=== PATIENT | male | born 1970 | race Hispanic/Latino ===

== ENCOUNTER 2019-05-06 07:02 | Emergency (ER) | payer SELFPAY ==
--- NOTE | 2019-05-06 08:25 | Emergency Department Report ---
<OLLIEBENITO DIOR Camelia - Last Filed: 05/06/19 17:44> ED Alcohol HPI - General Chief Complaint: Alcohol Stated Complaint: ALCOHOL WITHDRAWAL Time Seen by Provider: 05/06/19 08:16 Source: patient, EMS Mode of arrival: Ambulatory Limitations: No Limitations - History of Present Illness Initial Comments: 49 yo male comes to ER via EMS stating that he recently stopped drinking and is now having nausea tremors and weakness. His last drink was Sunday. He has been through prior detox. He has no history of seizures with detox. He states that he has been on a binge for about the last month. Pt tremulous on admit. He is pos for SI stating he would drink himself to or hang/choke himself. No previous suicide attempts. Patient lives with a roommate. Patient denies alcohol or drugs. Past medical history Hypertension Hyperlipidemia Obesity Depression Alcohol abuse gerd Patient does not work. Mom is in [facility] and has htn Fater is in [facility] and has htn Rx BP meds- does not know name MD Complaint: alcohol withdrawal Chronic Alcohol Use: Yes Previous Visits for Alcohol Intoxication?: Yes Recent Trauma: No Associated Symptoms: tremors, suicidality Treatments Prior to Arrival: none - Related Data Home Medications Medication Instructions Recorded Confirmed Last Taken Atorvastatin (Nf) [Lipitor] 10 mg PO DAILY 07/22/14 07/22/14 Unknown Omeprazole [PriLOSEC] 40 mg PO DAILY 07/22/14 07/22/14 Unknown Sertraline [Zoloft] 100 mg PO DAILY 07/22/14 07/22/14 Unknown amLODIPine [Norvasc] 10 mg PO DAILY 07/22/14 07/22/14 Unknown Previous Rx's Medication Instructions Recorded Last Taken Type Fenofibrate [Fenoglide] 120 mg PO QDAY #90 tablet 07/23/14 Unknown Rx chlordiazePOXIDE [Librium] 25 mg PO Q6H #14 capsule 05/06/19 Unknown Rx Allergies Allergy/AdvReac Type Severity Reaction Status Date / Time No Known Allergies Allergy Unverified 09/17/13 16:13 ED Review of Systems Comment: All other systems reviewed and negative ED Past Medical Hx - Past Medical History Hx Hypertension: Yes Hx CVA: No Hx Heart Attack/AMI: No Hx Congestive Heart Failure: No Hx Diabetes: No Hx Deep Vein Thrombosis: No Hx Pulmonary Embolism: No Hx GERD: Yes Hx Liver Disease: No Hx Renal Disease: No Hx of Cancer: No Hx Sickle Cell Disease: No Hx Arthritis: No Hx Headaches / Migraines: No Hx Seizures: No Hx Kidney Stones: No Hx Psychiatric Treatment: Yes (detox tx) Hx Asthma: No Hx COPD: No Hx Tuberculosis: No Hx Dementia: No Hx HIV: No Additional medical history: HIGH CHOLESTEROL - Surgical History Past Surgical History?: No - Family History Family history: no significant - Social History Smoking Status: Never Smoker Substance Use Type: Alcohol - Medications Home Medications: Home Medications Medication Instructions Recorded Confirmed Last Taken Type Atorvastatin (Nf) [Lipitor] 10 mg PO DAILY 07/22/14 07/22/14 Unknown History Omeprazole [PriLOSEC] 40 mg PO DAILY 07/22/14 07/22/14 Unknown History Sertraline [Zoloft] 100 mg PO DAILY 07/22/14 07/22/14 Unknown History amLODIPine [Norvasc] 10 mg PO DAILY 07/22/14 07/22/14 Unknown History Fenofibrate [Fenoglide] 120 mg PO QDAY #90 tablet 07/23/14 Unknown Rx chlordiazePOXIDE [Librium] 25 mg PO Q6H #14 capsule 05/06/19 Unknown Rx ED Physical Exam - General Limitations: No Limitations General appearance: alert, in no apparent distress - Head Head exam: Present: atraumatic, normocephalic - Eye Eye exam: Present: normal appearance - ENT ENT exam: Present: mucous membranes moist - Neck Neck exam: Present: normal inspection - Respiratory Respiratory exam: Present: normal lung sounds bilaterally. Absent: respiratory distress - Cardiovascular Cardiovascular Exam: Present: regular rate, normal rhythm. Absent: systolic murmur, diastolic murmur, rubs, gallop - GI/Abdominal GI/Abdominal exam: Present: soft, normal bowel sounds - Rectal Rectal exam: Present: deferred - Extremities Exam Extremities exam: Present: normal inspection - Back Exam Back exam: Present: normal inspection - Neurological Exam Neurological exam: Present: alert, oriented X3 - Psychiatric Psychiatric exam: Present: depressed, anxious, suicidal ideation - Skin Skin exam: Present: warm, dry, intact, normal color. Absent: rash ED Medical Decision Making - Lab Data Result diagrams: 05/06/19 08:43 05/06/19 08:43 - EKG Data EKG shows normal: sinus rhythm Rate: normal - EKG Data When compared to previous EKG there are: no significant change Interpretation: nonspecific ST-T wave spencer - Radiology Data Radiology results: report reviewed, image reviewed - Medical Decision Making Labs 05/06/19 05/06/19 05/06/19 08:43 08:43 08:43 WBC 4.7 RBC 4.54 Hgb 13.0 Hct 39.3 MCV 87 MCH 29 MCHC 33 RDW 17.8 H Plt Count 261 [place] % (Auto) Supply Officer PT 13.0 INR 0.97 Sodium Potassium Chloride Carbon Dioxide Anion Gap BUN Creatinine Estimated GFR BUN/Creatinine Ratio Glucose Calcium Magnesium 1.80 Total Bilirubin AST ALT Alkaline Phosphatase NT-Pro-B Natriuret Pep Total Protein Albumin Albumin/Globulin Ratio Amylase 91 Lipase Urine Color Urine Turbidity Urine pH Ur Specific [place] Urine Protein Urine Glucose (UA) Urine Ketones Urine Blood Urine Nitrite Urine Bilirubin Urine Urobilinogen Ur Leukocyte Esterase Urine RBC (Auto) U Epithel Cells (Auto) Urine Mucus Salicylates Acetaminophen Plasma/Serum Alcohol 05/06/19 05/06/19 05/06/19 08:43 08:43 08:43 WBC RBC Hgb Hct MCV MCH MCHC RDW Plt Count [place] % (Auto) PT INR Sodium 138 Potassium 4.0 Chloride 94.7 L Carbon Dioxide 17 L Anion Gap 30 BUN 15 Creatinine 0.7 L Estimated GFR > 60 BUN/Creatinine Ratio 21 Glucose 89 Calcium 9.7 Magnesium Total Bilirubin 0.40 AST 71 H ALT 33 Alkaline Phosphatase 89 NT-Pro-B Natriuret Pep 80.88 Total Protein 8.0 Albumin 4.7 Albumin/Globulin Ratio 1.4 Amylase Lipase 24 Urine Color Urine Turbidity Urine pH Ur Specific [place] Urine Protein Urine Glucose (UA) Urine Ketones Urine Blood Urine Nitrite Urine Bilirubin Urine Urobilinogen Ur Leukocyte Esterase Urine RBC (Auto) U Epithel Cells (Auto) Urine Mucus Salicylates Acetaminophen Plasma/Serum Alcohol < 0.01 05/06/19 05/06/19 05/06/19 08:43 08:43 09:58 WBC RBC Hgb Hct MCV MCH MCHC RDW Plt Count [place] % (Auto) PT INR Sodium Potassium Chloride Carbon Dioxide Anion Gap BUN Creatinine Estimated GFR BUN/Creatinine Ratio Glucose Calcium Magnesium Total Bilirubin AST ALT Alkaline Phosphatase NT-Pro-B Natriuret Pep Total Protein Albumin Albumin/Globulin Ratio Amylase Lipase Urine Color Yellow Urine Turbidity Clear Urine pH 5.0 Ur Specific [place] 1.021 Urine Protein 30 mg/dl Urine Glucose (UA) Neg Urine Ketones 80 Urine Blood Sm Urine Nitrite Neg Urine Bilirubin Neg Urine Urobilinogen < 2.0 Ur Leukocyte Esterase Neg Urine RBC (Auto) 2.0 U Epithel Cells (Auto) < 1.0 Urine Mucus Few Salicylates < 0.3 L Acetaminophen < 5.0 L Plasma/Serum Alcohol Vital Signs 05/06/19 05/06/19 07:54 10:02 Temperature 99.5 F Pulse Rate 88 90 Respiratory 18 14 Rate Blood Pressure 159/108 Blood Pressure 159/108 180/118 [Left] O2 Sat by Pulse 98 100 Oximetry 2012 for ETOH w/d SI pos- drink to or hang/choke self labs noted sz percautions CIWA protocol clonidine PO- monitor blood pressure MHE eval - dispo per MHE 1630 DISCUSSED PT WITH MENTAL HEALTH STAFF- THEY WILL EVALUATE AND PLACE RECS. Vital Signs 05/06/19 05/06/19 05/06/19 07:51 07:54 08:00 Temperature 99.5 F Pulse Rate 93 H 88 90 Respiratory 17 18 14 Rate Blood Pressure 159/108 159/108 159/108 Blood Pressure 159/108 [Left] O2 Sat by Pulse 98 98 Oximetry 05/06/19 05/06/19 05/06/19 09:01 10:01 10:02 Temperature Pulse Rate 88 90 90 Respiratory 17 16 14 Rate Blood Pressure 171/105 180/118 Blood Pressure 180/118 [Left] O2 Sat by Pulse 98 100 Oximetry 05/06/19 05/06/19 05/06/19 10:43 10:45 11:00 Temperature Pulse Rate 79 95 H 77 Respiratory 19 19 Rate Blood Pressure 169/107 169/107 Blood Pressure 169/107 [Left] O2 Sat by Pulse 98 98 Oximetry 05/06/19 05/06/19 05/06/19 12:00 12:14 13:00 Temperature Pulse Rate 67 85 102 H Respiratory 20 16 16 Rate Blood Pressure 157/102 151/97 Blood Pressure 157/102 [Left] O2 Sat by Pulse 98 98 98 Oximetry 05/06/19 05/06/19 05/06/19 14:00 15:00 16:00 Temperature Pulse Rate 78 80 73 Respiratory 22 16 22 Rate Blood Pressure 142/99 142/95 151/97 Blood Pressure [Left] O2 Sat by Pulse 97 99 100 Oximetry NAYELYE MODESTA COMPLETED PT REFUSED INPT HE HAS JUST DONE 6 M RECENTLY HE WANTS OUTPT REFERRAL VSS TAKING PO AMBULATORY NON ILL NON TOXIC WILL DC HOME WITH LIBRIUM TAPER AND REFERRALS FOR OUTPT ASSISTANCE - Differential Diagnosis 2012 etoh withdrawal/SI ED Disposition Clinical Impression: Alcohol withdrawal Disposition: DC/TX-65 PSY HOSP/PSY UNIT Is pt being admited?: No Does the pt Need Aspirin: No Condition: Stable Additional Instructions: FOLLOW UP INSTRUCTED LIBRIUM ORDERED TO NOT TAKE LIBRIUM IF YOU ARE GOING TO DRINK PCP REFERRAL BELOW CONTINUE HOME MEDS HYDRATE WELL WITH WATER Prescriptions: chlordiazePOXIDE [Librium] 25 mg PO Q6H #14 capsule Referrals: ALVA COPELAND MD [Staff Physician] - 3-5 Days Time of Disposition: 10:34 <MELA KIM - Last Filed: 05/09/19 02:50> ED Review of Systems ROS: Stated complaint: ALCOHOL WITHDRAWAL Other details as noted in HPI ED Course Vital Signs 05/06/19 05/06/19 05/06/19 07:51 07:54 08:00 Temperature 99.5 F Pulse Rate 93 H 88 90 Respiratory 17 18 14 Rate Blood Pressure 159/108 159/108 159/108 Blood Pressure 159/108 [Left] O2 Sat by Pulse 98 98 Oximetry 05/06/19 05/06/19 05/06/19 09:01 10:01 10:02 Temperature Pulse Rate 88 90 90 Respiratory 17 16 14 Rate Blood Pressure 171/105 180/118 Blood Pressure 180/118 [Left] O2 Sat by Pulse 98 100 Oximetry 05/06/19 05/06/19 05/06/19 10:43 10:45 11:00 Temperature Pulse Rate 79 95 H 77 Respiratory 19 19 Rate Blood Pressure 169/107 169/107 Blood Pressure 169/107 [Left] O2 Sat by Pulse 98 98 Oximetry 05/06/19 05/06/19 05/06/19 12:00 12:14 13:00 Temperature Pulse Rate 67 85 102 H Respiratory 20 16 16 Rate Blood Pressure 157/102 151/97 Blood Pressure 157/102 [Left] O2 Sat by Pulse 98 98 98 Oximetry 05/06/19 05/06/19 05/06/19 14:00 15:00 16:00 Temperature Pulse Rate 78 80 73 Respiratory 22 16 22 Rate Blood Pressure 142/99 142/95 151/97 Blood Pressure [Left] O2 Sat by Pulse 97 99 100 Oximetry 05/06/19 05/06/19 05/06/19 17:00 19:09 19:24 Temperature Pulse Rate 78 87 Respiratory 15 Rate Blood Pressure 149/104 161/121 154/121 Blood Pressure [Left] O2 Sat by Pulse 98 Oximetry 05/06/19 19:26 Temperature Pulse Rate 85 Respiratory 15 Rate Blood Pressure Blood Pressure 154/121 [Left] O2 Sat by Pulse 97 Oximetry ED Medical Decision Making - Lab Data Result diagrams: 05/06/19 08:43 05/06/19 08:43 - Medical Decision Making Pt htn during ed stay admits to noncompliance with norvasc 10mg Novasc 10mg given prior to d/c Critical care attestation.: If time is entered above; I have spent that time in minutes in the direct care of this critically ill patient, excluding procedure time. ED Disposition Is pt being admited?: No
[2019-05-06] MEDS ORDERED: THIAMINE 100 MG, FOLIC ACID 1 MG, MULTIPLE VITAMIN INJ, ADULT 10 ML in SODIUM CHLORIDE ... IV ONE (09:00)
[2019-05-06 09:24] LABS: Hematocrit 39.3 % (35.5-45.6); Mean Corpuscular HGB Conc 33 % (32-34); Mean Corpuscular Volume 87 fl (84-94); Platelet Count 261 K/mm3 (140-440); Red Blood Count 4.54 M/mm3 (3.65-5.03); Red Cell Distribution Width 17.8 % (13.2-15.2)
[2019-05-06 09:35] LABS: INR 0.97 (0.87-1.13)
[2019-05-06 09:38] LABS: Alanine Aminotransferase 33 units/L (7-56); Albumin 4.7 g/dL (3.9-5); BUN/Creatinine Ratio 21; Blood Urea Nitrogen 15 mg/dL (9-20); Calcium 9.7 mg/dL (8.4-10.2); Hemolysis Index 3
[2019-05-06] MEDS ORDERED: LORazepam 2 MG/ML VIAL IV ONE (09:41)
[2019-05-06 10:24] LABS: Bilirubin,Urine NEG (Negative); Blood,Urine SM (Negative); Color,Urine Yellow (Yellow); Mucus,Urine FEW /HPF; Urobilinogen,Urine < 2.0 mg/dL (<2.0)
[2019-05-06] MEDS ORDERED: cloNIDine 0.1 MG TAB PO ONE (10:33)
[2019-05-06 10:36] LABS: WBC,Urine < 1.0 /HPF (0.0-6.0)
[2019-05-06 10:41] LABS: Amphetamine Screen,Urine PRESUMPTIVE NEGATIVE; Benzodiazepines Screen,Urine PRESUMPTIVE NEGATIVE; Cannabinoid Screen,Urine PRESUMPTIVE NEGATIVE; Cocaine Screen,Urine PRESUMPTIVE NEGATIVE; Methadone Screen,Urine PRESUMPTIVE NEGATIVE; Opiate Screen,Urine PRESUMPTIVE NEGATIVE
[2019-05-06 10:51] LABS: Basophils % (Manual) 0 % (0.0-1.8); Eosinophils % (Manual) 0 % (0.0-4.3); Total Cells Counted 100
[2019-05-06 10:52] LABS: Anisocytosis 1+; Hypochromasia Few; Macrocytosis Few; Platelet Estimate Consistent w Auto; Tear Drop Cells Few
--- NOTE | 2019-05-06 11:15 | XRay Report ---
CHEST 1 VIEW INDICATION / CLINICAL INFORMATION: weakness. COMPARISON: None available. FINDINGS: SUPPORT DEVICES: None. HEART / MEDIASTINUM: There is mild enlargement of the cardiac silhouette. LUNGS / PLEURA: No focal infiltrate is seen. There is mild venous congestion.. No pneumothorax. ADDITIONAL FINDINGS: There is mild elevation of the right hemidiaphragm IMPRESSION: 1. There is mild enlargement of the cardiac silhouette. There is mild venous congestion. Signer Name: Patrick Arrieta MD Signed: 05/06/2019 10:53 AM Workstation Name: [id number]
[2019-05-06] MEDS ORDERED: ACETAMINOPHEN 325 MG TAB PO ONE (14:18)
[2019-05-06] MEDS ORDERED: LORazepam 2 MG/ML VIAL IV PRN ×2 (17:01)
[2019-05-06] MEDS ORDERED: amLODIPine 5 MG TAB PO ONE (19:19)
[2019-05-06 19:25] VITALS: BP 154/121
== END 2019-05-06 19:32 ==
LOC: ED 07:02
DX: F10.239 Alcohol dependence with withdrawal, unspecified (principal); K21.9 Gastro-esophageal reflux disease without esophagitis; E78.00 Pure hypercholesterolemia, unspecified; Z79.899 Other long term (current) drug therapy
CPT/HCPCS: 36415; 71045; 80053; 80307; 81001; 82150; 83690; 83735; 83880; 85007; 85025; 85610; 93005; 93010; 96365; 96366; 96375; 99285; J2060; J3411; J7030; 80320; G0480

== ENCOUNTER 2019-09-14 20:26 | Emergency (ER) | payer SELFPAY ==
[2019-09-14] MEDS ORDERED: SODIUM CHLORIDE 0.9% 1000 ML 1,000 ML IV ONE (20:54)
--- NOTE | 2019-09-14 21:00 | Emergency Department Report ---
<OWENSTANLEYCANDI Saldaña - Last Filed: 09/15/19 01:58> ED Fall HPI - General Chief Complaint: Medical Clearance Stated Complaint: ETOH Time Seen by Provider: 09/14/19 20:40 Source: patient, EMS Mode of arrival: Stretcher - History of Present Illness Initial Comments: 49-year-old male with history of alcohol abuse presents to the ED following a fall at a convenience store. Patient has abrasions to the left face, hand and knee. Patient appears to be intoxicated. MD Complaint: fall -: This evening Fall From: standing Place Fall Occurred: other Loss of Consciousness: unsure Location: face Location - Extremities: Left: Hand, Right: Knee Context: alcohol use - Related Data Home Medications Medication Instructions Recorded Confirmed Last Taken Atorvastatin (Nf) [Lipitor] 10 mg PO DAILY 07/22/14 07/22/14 Unknown Omeprazole [PriLOSEC] 40 mg PO DAILY 07/22/14 07/22/14 Unknown Sertraline [Zoloft] 100 mg PO DAILY 07/22/14 07/22/14 Unknown amLODIPine [Norvasc] 10 mg PO DAILY 07/22/14 07/22/14 Unknown Previous Rx's Medication Instructions Recorded Last Taken Type Fenofibrate [Fenoglide] 120 mg PO QDAY #90 tablet 07/23/14 Unknown Rx chlordiazePOXIDE [Librium] 25 mg PO Q6H #14 capsule 05/06/19 Unknown Rx Allergies Allergy/AdvReac Type Severity Reaction Status Date / Time No Known Allergies Allergy Unverified 09/17/13 16:13 ED Review of Systems Comment: Unobtainable due to pts medical conditions (Patient is intoxicated) ED Past Medical Hx - Past Medical History Previous Medical History?: Yes Hx Hypertension: Yes Hx CVA: No Hx Heart Attack/AMI: No Hx Congestive Heart Failure: No Hx Diabetes: No Hx Deep Vein Thrombosis: No Hx Pulmonary Embolism: No Hx GERD: Yes Hx Liver Disease: No Hx Renal Disease: No Hx Sickle Cell Disease: No Hx Arthritis: No Hx Headaches / Migraines: No Hx Seizures: No Hx Kidney Stones: No Hx Psychiatric Treatment: Yes (detox tx) Hx Asthma: No Hx COPD: No Hx Tuberculosis: No Hx Dementia: No Hx HIV: No Additional medical history: HIGH CHOLESTEROL - Social History Smoking Status: Unknown if ever smoked Substance Use Type: Alcohol - Medications Home Medications: Home Medications Medication Instructions Recorded Confirmed Last Taken Type Atorvastatin (Nf) [Lipitor] 10 mg PO DAILY 07/22/14 07/22/14 Unknown History Omeprazole [PriLOSEC] 40 mg PO DAILY 07/22/14 07/22/14 Unknown History Sertraline [Zoloft] 100 mg PO DAILY 07/22/14 07/22/14 Unknown History amLODIPine [Norvasc] 10 mg PO DAILY 07/22/14 07/22/14 Unknown History Fenofibrate [Fenoglide] 120 mg PO QDAY #90 tablet 07/23/14 Unknown Rx chlordiazePOXIDE [Librium] 25 mg PO Q6H #14 capsule 05/06/19 Unknown Rx ED Physical Exam - General Limitations: Other General appearance: appears intoxicated, lethargic - Head Head exam: Present: other (Abrasion to left cheek) - Eye Eye exam: Present: normal appearance, PERRL, EOMI - ENT ENT exam: Present: mucous membranes moist - Neck Neck exam: Present: normal inspection - Respiratory Respiratory exam: Present: normal lung sounds bilaterally. Absent: respiratory distress - Cardiovascular Cardiovascular Exam: Present: regular rate, normal rhythm - GI/Abdominal GI/Abdominal exam: Present: soft. Absent: distended, tenderness - Extremities Exam Extremities exam: Present: other (Moves all extremities, abrasion to right knee, no obvious deformities) - Neurological Exam Neurological exam: Present: other (Lethargic, awakens to painful stimuli, able to state his name, moves all extremities) - Skin Skin exam: Present: warm, dry, normal color ED Course - Reevaluation(s) Reevaluation #1: 09/15/19 00:34 Pt more alert. States he remembers falling in the store. Reports he only had a couple of beers tonight. Pt now more alert than when he arrived. Asking for urinal, but he is still very intoxicated. Alcohol level 0.33. CT evaluation negative. Pt will need further observation here in the ED. Will sign out to overnight physician. ED Medical Decision Making - Lab Data Result diagrams: 09/14/19 21:07 09/14/19 21:07 - Radiology Data Radiology results: report reviewed, image reviewed ED Disposition Clinical Impression: Acute head injury, Alcohol intoxication Disposition: DC-01 TO HOME OR SELFCARE Condition: Stable Instructions: Minor Head Injury (ED), Alcohol Intoxication (ED) Additional Instructions: Do not drive or operate motor vehicles until cleared to do so by a primary care doctor. Recommend patient take a multivitamin [id number] on a daily basis. Recommend that patient minimize or discontinue alcohol consumption. Long-term consumption of alcohol may cause addiction, disability, , paralysis, loss of quality of life. Return to the emergency room right away with new, worsened or different symptoms, or symptoms not present on the initial emergency room evaluation. Referrals: [facility] [Provider Group] - as needed Forms: Work/School Release Form(ED) <IRMA CLEMENTS - Last Filed: 09/16/19 03:12> ED Review of Systems ROS: Stated complaint: ETOH Other details as noted in HPI ED Course Vital Signs 09/14/19 09/14/19 09/14/19 20:41 22:12 23:00 Temperature 97.5 F L 97.8 F Pulse Rate 82 78 69 Respiratory 16 20 18 Rate Blood Pressure 128/87 119/73 113/69 [Right] O2 Sat by Pulse 97 94 99 Oximetry 09/15/19 09/15/19 03:29 09:49 Temperature 97.9 F 98.4 F Pulse Rate 80 98 H Respiratory 16 18 Rate Blood Pressure 118/80 123/85 [Right] O2 Sat by Pulse 100 98 Oximetry - Reevaluation(s) Reevaluation #2: 09/15/19 05:39 Patient observed in this department for over 9 hours without clinical decompensation. The patient walks with a steady gait, is alert and oriented, and clinically sober at this time and exhibits decision-making capacity. He makes no complaint of physical pain at this time. ED Medical Decision Making - Lab Data Result diagrams: 09/14/19 21:07 09/14/19 21:07 Vital Signs 09/14/19 09/14/19 09/14/19 20:41 22:12 23:00 Temperature 97.5 F L 97.8 F Pulse Rate 82 78 69 Respiratory 16 20 18 Rate Blood Pressure 128/87 119/73 113/69 [Right] O2 Sat by Pulse 97 94 99 Oximetry 09/15/19 03:29 Temperature 97.9 F Pulse Rate 80 Respiratory 16 Rate Blood Pressure 118/80 [Right] O2 Sat by Pulse 100 Oximetry Lab Results 09/14/19 09/14/1920 Range/Units 21:07 21:07 21:07 WBC 5.1 (4.5-11.0) K/mm3 RBC 4.35 (3.65-5.03) M/mm3 Hgb 13.1 (11.8-15.2) gm/dl Hct 38.9 (35.5-45.6) % MCV 90 (84-94) fl MCH 30 (28-32) pg MCHC 34 (32-34) % RDW 15.6 H (13.2-15.2) % Plt Count 205 (140-440) K/mm3 Lymph % (Auto) Computer Designer Baso % (Auto) Computer Designer Add Manual Diff Complete Total Counted 100 Seg Neutrophils % Computer Designer Seg Neuts % (Manual) 37.0 L (40.0-70.0) % Band Neutrophils % 0 % Lymphocytes % (Manual) 56.0 H (13.4-35.0) % Reactive Lymphs % (Man) 0 % Monocytes % (Manual) 7.0 (0.0-7.3) % Eosinophils % (Manual) 0 (0.0-4.3) % Basophils % (Manual) 0 (0.0-1.8) % Metamyelocytes % 0 % Myelocytes % 0 % Promyelocytes % 0 % Blast Cells % 0 % Nucleated RBC % Not Reportable Seg Neutrophils # Man 1.9 (1.8-7.7) K/mm3 Band Neutrophils # 0.0 K/mm3 Lymphocytes # (Manual) 2.9 (1.2-5.4) K/mm3 Abs React Lymphs (Man) 0.0 K/mm3 Monocytes # (Manual) 0.4 (0.0-0.8) K/mm3 Eosinophils # (Manual) 0.0 (0.0-0.4) K/mm3 Basophils # (Manual) 0.0 (0.0-0.1) K/mm3 Metamyelocytes # 0.0 K/mm3 Myelocytes # 0.0 K/mm3 Promyelocytes # 0.0 K/mm3 Blast Cells # 0.0 K/mm3 WBC Morphology Not Reportable Hypersegmented Neuts Not Reportable Hyposegmented Neuts Not Reportable Hypogranular Neuts Not Reportable Smudge Cells Not Reportable Toxic Granulation Not Reportable Toxic Vacuolation Not Reportable Dohle Bodies Not Reportable Pelger-Huet Anomaly Not Reportable Jefry Rods Not Reportable Platelet Estimate Consistent w auto Clumped Platelets Not Reportable Plt Clumps, EDTA Not Reportable Large Platelets Not Reportable Giant Platelets Not Reportable Platelet Satelliting Not Reportable Plt Morphology Comment Not Reportable RBC Morphology Not Reportable Dimorphic RBCs Not Reportable Polychromasia Not Reportable Hypochromasia Not Reportable Poikilocytosis Not Reportable Anisocytosis 1+ Microcytosis Not Reportable Macrocytosis Few Spherocytes Not Reportable Pappenheimer Bodies Not Reportable Sickle Cells Not Reportable Target Cells Not Reportable Tear Drop Cells Not Reportable Ovalocytes Not Reportable Helmet Cells Not Reportable [place] Bodies Not Reportable [place] Rings Not Reportable [place] Cells Not Reportable Bite Cells Not Reportable Crenated Cell Not Reportable Elliptocytes Not Reportable Acanthocytes (Spur) Not Reportable Rouleaux Not Reportable Hemoglobin C Crystals Not Reportable Schistocytes Not Reportable Malaria parasites Not Reportable Salty Bodies Not Reportable Hem Pathologist Commnt No Sodium 148 H (137-145) mmol/L Potassium 3.8 (3.6-5.0) mmol/L Chloride 109.1 H (98-107) mmol/L Carbon Dioxide 27 (22-30) mmol/L Anion Gap 16 mmol/L BUN 11 (9-20) mg/dL Creatinine 1.1 (0.8-1.5) mg/dL Estimated GFR > 60 ml/min BUN/Creatinine Ratio 10 % Glucose 81 (75-100) mg/dL Calcium 9.5 (8.4-10.2) mg/dL Plasma/Serum Alcohol 0.33 H (0-0.07) % - Radiology Data Radiology results: report reviewed, image reviewed Print Report Referring Physician: JAZZY WEAVER Patient Name: DENISE MOORE Date of : 1970 Sex: Male Report Date: 2019-09-14 Report Status: Finalized Findings [facility] [address] [place] [address] Cat Scan Report Signed Patient: DENISE MOORE MR# : [id number] : 1970 Acct:[id number] Age/Sex: 49 / M ADM Date: 09/14/19 Loc: ED Attending Dr: Ordering Physician: JAZZY WEAVER MD Date of Service: 09/14/19 Procedure(s): CT head/brain wo con Accession Number(s): [id number] cc: JAZZY WEAVER MD CT head/brain wo con INDICATION / CLINICAL INFORMATION: FALL, INJURY. TECHNIQUE: All CT scans at this location are performed using CT dose reduction for ALARA by means of automated exposure control. COMPARISON: None available. FINDINGS: No intracranial hemorrhage or abnormal extra-axial fluid collection. No evidence of mass effect. Deepening of the cortical sulci and widening of extra-axial CSF spaces is more prominent than would BE expected for age. No evidence of territorial infarction or mass effect. Visualized sinuses and osseous structures are negative. IMPRESSION: 1. No acute intracranial findings. Signer Name: Ezra Burr MD Signed: 09/14/2019 10:09 PM Workstation Name: [id number] Transcribed By: VIVI Dictated By: Ezra Burr MD Electronically Authenticated By: Ezra Burr MD Signed Date/Time: 09/14/192208 Print Report Referring Physician: JAZZY WEAVER Patient Name: DENISE MOORE Date of : 1970 Sex: Male Report Date: 2019-09-14 Report Status: Finalized Findings [facility] [address] [place] [address] Cat Scan Report Signed Patient: DENISE MOORE MR# : [id number] : 1970 Acct:[id number] Age/Sex: 49 / M ADM Date: 09/14/19 Loc: ED Attending Dr: Ordering Physician: JAZZY WEAVER MD Date of Service: 09/14/19 Procedure(s): CT cervical spine wo con Accession Number(s): [id number] cc: JAZZY WEAVER MD CT FACE HISTORY: FALL, INJURY COMPARISON: None. TECHNIQUE: Axial images of the face were obtained. Coronal reformats were generated. All CT scans at this location are performed using CT dose reduction for ALARA by means of automated exposure control. CONTRAST: None. FINDINGS: Facial bones: No fracture or other significant abnormality. Paranasal sinuses: Clear. Orbits: No significant abnormality. Visualized images of the intracranial space: No significant abnormality. Additional findings: Soft tissue swelling is seen of the left maxillary region. IMPRESSION: No significant abnormality. CT CERVICAL SPINE WITHOUT CONTRAST INDICATION: FALL, INJURY TECHNIQUE: All CT scans at this location are performed using CT dose reduction for ALARA by means of automated exposure control. Axial CT images were obtained through the cervical spine. Sagittal and coronal reformatted images were produced. COMPARISON: None available. Cervical spine findings: No fractures or subluxation are seen. Disc spaces are maintained. No obvious disc herniation is noted. Additional findings: None. IMPRESSION: No acute findings. Signer Name: Dakotah Zarco MD Signed: 09/14/2019 11:04 PM Workstation Name: [id number] Transcribed By: GJ Dictated By: Dakotah Zarco MD Electronically Authenticated By: Dakotah Zarco MD Signed Date/Time: 09/14/19 8649 Print Report Referring Physician: JAZZY WEAVER Patient Name: DENISE MOORE Date of : 1970 Sex: Male Report Date: 2019-09-14 Report Status: Finalized Findings [facility] [address] [place] [address] Cat Scan Report Signed Patient: DENISE MOORE MR# : [id number] : 1970 Acct:[id number] Age/Sex: 49 / M ADM Date: 09/14/19 Loc: ED Attending Dr: Ordering Physician: JAZZY WEAVER MD Date of Service: 09/14/19 Procedure(s): CT facial bones wo con Accession Number(s): [id number] cc: JAZZY WEAVER MD CT FACE HISTORY: FALL, INJURY COMPARISON: None. TECHNIQUE: Axial images of the face were obtained. Coronal reformats were generated. All CT scans at this location are performed using CT dose reduction for ALARA by means of automated exposure control. CONTRAST: None. FINDINGS: Facial bones: No fracture or other significant abnormality. Paranasal sinuses: Clear. Orbits: No significant abnormality. Visualized images of the intracranial space: No significant abnormality. Additional findings: Soft tissue swelling is seen of the left maxillary region. IMPRESSION: No significant abnormality. CT CERVICAL SPINE WITHOUT CONTRAST INDICATION: FALL, INJURY TECHNIQUE: All CT scans at this location are performed using CT dose reduction for ALARA by means of automated exposure control. Axial CT images were obtained through the cervical spine. Sagittal and coronal reformatted images were produced. COMPARISON: None available. Cervical spine findings: No fractures or subluxation are seen. Disc spaces are maintained. No obvious disc herniation is noted. Additional findings: None. IMPRESSION: No acute findings. Signer Name: Dakotah Zarco MD Signed: 09/14/2019 11:04 PM Workstation Name: [id number] Critical care attestation.: If time is entered above; I have spent that time in minutes in the direct care of this critically ill patient, excluding procedure time. ED Disposition Is pt being admited?: No Does the pt Need Aspirin: No
[2019-09-14 21:35] LABS: BUN/Creatinine Ratio 10; Blood Urea Nitrogen 11 mg/dL (9-20); Calcium 9.5 mg/dL (8.4-10.2); Hemolysis Index 11
[2019-09-14 21:38] LABS: Hematocrit 38.9 % (35.5-45.6); Hemoglobin 13.1 gm/dl (11.8-15.2); Mean Corpuscular HGB Conc 34 % (32-34); Mean Corpuscular Volume 90 fl (84-94); Platelet Count 205 K/mm3 (140-440); Red Blood Count 4.35 M/mm3 (3.65-5.03); Red Cell Distribution Width 15.6 % (13.2-15.2)
--- NOTE | 2019-09-14 22:13 | Cat Scan Report ---
CT head/brain wo con INDICATION / CLINICAL INFORMATION: FALL, INJURY. TECHNIQUE: All CT scans at this location are performed using CT dose reduction for ALARA by means of automated e xposure control. COMPARISON: None available. FINDINGS: No intracranial hemorrhage or abnormal extra-axial fluid collection. No evidence of mass effect. Deepening of the cortical sulci and widening of extra-axial CSF spaces is more prominent than would BE expected for age. No evidence of territorial infarction or mass effect. Visualized sinuses and osseous structures are negative. IMPRESSION: 1. No acute intracranial findings. Signer Name: Ezra Burr MD Signed: 09/14/2019 10:09 PM Workstation Name: [id number]
[2019-09-14 22:24] LABS: Basophils % (Manual) 0 % (0.0-1.8); Eosinophils % (Manual) 0 % (0.0-4.3); Total Cells Counted 100
[2019-09-14 22:25] LABS: Anisocytosis 1+; Macrocytosis Few
[2019-09-14 22:26] LABS: Platelet Estimate Consistent w Auto
--- NOTE | 2019-09-14 23:08 | Cat Scan Report ---
CT FACE HISTORY: FALL, INJURY COMPARISON: None. TECHNIQUE: Axial images of the face were obtained. Coronal reformats were generated. All CT scans at this location are performed using CT dose reduction for ALARA by means of automated exposure control . CONTRAST: None. FINDINGS: Facial bones: No fracture or other significant abnormality. Paranasal sinuses: Clear. Orbits: No significant abnormality. Visualized images of the intracranial space: No significant abnormality. Additional findings: Soft tissue swelling is seen of the left maxillary region. IMPRESSION: No significant abnormality. CT CERVICAL SPINE WITHOUT CONTRAST INDICATION: FALL, INJURY TECHNIQUE: All CT scans at this location are performed using CT dose reduction for ALARA by means of automated exposure control. Axial CT images were obtained through the cervical spine. Sagittal and co terry reformatted images were produced. COMPARISON: None available. Cervical spine findings: No fractures or subluxation are seen. Disc spaces are maintained. No obvious disc herniation is noted. Additional findings: None. IMPRESSION: No acute findings. Signer Name: Dakotah Zarco MD Signed: 09/14/2019 11:04 PM Workstation Name: [id number]
[2019-09-15 09:50] VITALS: BP 123/85
== END 2019-09-15 10:01 | disposition home or self-care (01) ==
LOC: ED 20:26
DX: S09.90XA Unspecified injury of head, initial encounter (principal); F10.229 Alcohol dependence with intoxication, unspecified; I10 Essential (primary) hypertension; K21.9 Gastro-esophageal reflux disease without esophagitis; E78.00 Pure hypercholesterolemia, unspecified; Z79.899 Other long term (current) drug therapy; W19.XXXA Unspecified fall, initial encounter; Y93.89 Activity, other specified; Y92.89 Other specified places as the place of occurrence of the external cause; Y99.8 Other external cause status
CPT/HCPCS: 36415; 70450; 70486; 72125; 80048; 85007; 85025; 99285; J7030; 80320; G0480